=== PATIENT | male | born 1955 | race Caucasian/White ===

== ENCOUNTER 2022-04-01 15:54 | Inpatient (IN) | payer OTHER ==
[~2022-04-01] VITALS: Ht 175.3 cm; Wt 98.5 kg
[2022-04-01 16:19] LABS: BASOPHILS % (AUTO) 0.3 % (0.0-2.0); EOSINOPHILS % (AUTO) 0.1 % (1.0-6.0); HEMATOCRIT 43.7 % (41-53); HEMOGLOBIN 14.4 g/dL (13.5-17.5); LYMPHOCYTES # (AUTO) 0.6 K/uL (1.0-4.8); LYMPHOCYTES % (AUTO) 4.6 % (22.0-44.0); MEAN CORPUSCULAR HEMOGLOBIN 28.2 pg (26.0-34.0); MEAN CORPUSCULAR VOLUME 85 fL (80-100); MONOCYTES # (AUTO) 1.2 K/uL (0.1-1.0); MONOCYTES % (AUTO) 8.8 % (2.0-9.0); NEUTROPHILS # (AUTO) 11.2 K/uL (1.8-7.7); PLATELET COUNT (AUTO) 136 K/uL (150-450); RED BLOOD CELL COUNT(AUTO) 5.13 MIL/uL (4.50-5.90); RED CELL DISTRIBUTION WIDTH 15.5 % (11.5-14.5)
[2022-04-01 16:26] LABS: NEUTROPHILS % (AUTO) 86.2 % (40.0-70.0)
[2022-04-01 16:32] LABS: CALCIUM, TOTAL 8.6 mg/dL (8.8-10.5); CREATININE 1.23 mg/dL (0.60-1.30)
[2022-04-01 16:37] LABS: INR 1.3 (0.9-1.1); PROTHROMBIN TIME 13.3 SEC (9.4-11.6)
[2022-04-01 16:38] LABS: ALBUMIN 3.3 g/dL (3.4-5.0); BILIRUBIN,TOTAL 5.4 mg/dL (0.1-1.0); TOTAL PROTEIN, SERUM 7.5 g/dL (6.4-8.2)
[2022-04-01] MEDS ORDERED: SODIUM CHLORIDE 0.9% 1,000 ML IV ONE (16:45)
[2022-04-01] MEDS ORDERED: IOHEXOL 350 MG/ML 75 ML VIAL ONE (16:45)
[2022-04-01] MEDS ORDERED: SODIUM CHLORIDE 0.9% 100 ML ONE (16:45)
[2022-04-01] MEDS ORDERED: ONDANSETRON HCL 4 MG/2 ML VIAL IVP PRN (16:45)
[2022-04-01] MEDS ORDERED: DEXTROSE 50%-WATER 25 GM/50 ML SYRINGE IVP PRN (16:45)
[2022-04-01] MEDS ORDERED: BISACODYL 10 MG RECTAL RECTAL SUPPOSITORY PR PRN (16:45)
[2022-04-01 16:59] LABS: THYROID STIMULATING HORMONE 1.71 uIU/mL (0.36-3.74)
[2022-04-01] MEDS ORDERED: ALTEPLASE PER STROKE PROTOCOL CLINICAL ONE (17:00)
[2022-04-01] MEDS ORDERED: ALTEPLASE 9 MG in WATER FOR INJECTION,STERILE 9 ML IV ONE (17:02)
[2022-04-01] MEDS ORDERED: ALTEPLASE 81 MG in WATER FOR INJECTION,STERILE 81 ML IV ONE (17:02)
[2022-04-01 17:13] LABS: APPEARANCE,URINE CLEAR (CLEAR); GLUCOSE, URINE (UA) 70-100 mg/dL (NEGATIVE); KETONES,URINE NEGATIVE (NEGATIVE); LEUKOCYTE ESTERASE ,URINE NEGATIVE (NEGATIVE); NITRATE,URINE NEGATIVE (NEGATIVE); OCCULT BLOOD,URINE NEGATIVE (NEGATIVE); PROTEIN,URINE 100-200,SEE CONFIRM mg/dL (NEGATIVE); SPECIFIC GRAVITIY, URINE 1.032 (1.003-1.030)
[2022-04-01] MEDS ORDERED: AMIODARONE HCL 150 MG in DEXTROSE 5%-WATER 97 ML IV ONE (17:15)
[2022-04-01] MEDS ORDERED: AMIODARONE HCL 360 MG in DEXTROSE 5%-WATER 242.8 ML IV ONE (17:15)
[2022-04-01] MEDS ORDERED: SODIUM CHLORIDE 0.9% 3,050 ML IV ONE (17:15)
[2022-04-01 17:16] LABS: BILIRUBIN,URINE SMALL (NEGATIVE)
[2022-04-01 17:18] LABS: AMPHET/METH SCREEN,URINE NEGATIVE (NEGATIVE); BARBITURATE SCREEN, URINE NEGATIVE (NEGATIVE); BENZODIAZEPINES SCREEN,URINE NEGATIVE (NEGATIVE); CANNABINOID SCREEN,URINE NEGATIVE (NEGATIVE); COCAINE SCREEN,URINE NEGATIVE (NEGATIVE); METHADONE SCREEN, URINE NEGATIVE (NEGATIVE); OPIATE SCREEN,URINE NEGATIVE (NEGATIVE); PHENCYCLIDINE SCREEN,URINE NEGATIVE (NEGATIVE)
[2022-04-01 17:26] LABS: BACTERIA,URINE None Seen /HPF (None Seen); RBC,URINE 0-2 /HPF (0-2); SULFOSALICYLIC ACID,URINE 1+ (Negative); WBC,URINE 0-2 /HPF (0-5)
[2022-04-01] MEDS ORDERED: ACETAMINOPHEN 1000 MG/ISO-OSM 100 ML IV ONE (17:30)
[2022-04-01] MEDS: PANTOPRAZOLE SODIUM 40 MG/VIAL IVP SCH (17:35)
[2022-04-01] MEDS ORDERED: ASPIRIN 300 MG RECTAL SUPPOSITORY PR ONE (17:45)
[2022-04-01 21:00] VITALS: BP 142/97
[2022-04-01] MEDS: ETHYL ALCOHOL 62% ANTISEPTIC NASAL SANITIZER 0.6 ML AMPUL NASAL SCH (22:10)
[2022-04-01 22:16] LABS: GLUCOSE,POINT OF CARE 132 MG/DL (70-110)
[2022-04-01] MEDS ORDERED: AMIODARONE HCL 540 MG in DEXTROSE 5%-WATER 239.2 ML IV ONE (23:15)
[2022-04-02] VITALS: BP_SYST 153; BP_SYST 158; BP_DIAS 112; BP_DIAS 85
[2022-04-02] MEDS ORDERED: HEPARIN SODIUM,PORCINE 5,000 UNITS/ML VIAL SQ SCH
[2022-04-02 01:32] LABS: COVID AG,FIA SOURCE NASAL SWAB
[2022-04-02] MEDS: LABETALOL HCL 5 MG/ML 20 ML VIAL IVP PRN (01:50)
[2022-04-02 01:58] LABS: INFLUENZA TYPE A NEGATIVE FOR TYPE A (NEGATIVE); INFLUENZA TYPE B NEGATIVE FOR TYPE B (NEGATIVE)
[2022-04-02 04:00] VITALS: BP 171/100
[2022-04-02 06:16] LABS: CHOL/HDL RATIO 2.9 (4.2-7.3)
[2022-04-02] MEDS: INSULIN LISPRO 100 UNITS/ML SQ PRN ×2 (06:43→23:22)
[2022-04-02 06:51] LABS: GLUCOSE,POINT OF CARE 146 MG/DL (70-110)
[2022-04-02 08:00] VITALS: BP 155/100
[2022-04-02] MEDS: PANTOPRAZOLE SODIUM 40 MG/VIAL IVP SCH (09:00)
[2022-04-02] MEDS: ETHYL ALCOHOL 62% ANTISEPTIC NASAL SANITIZER 0.6 ML AMPUL NASAL SCH ×2 (09:32→20:49)
[2022-04-02] MEDS: ACETAMINOPHEN 325 MG TABLET PO PRN ×2 (10:24→16:28)
[2022-04-02] MEDS: METOPROLOL TARTRATE 25 MG TABLET PO SCH ×2 (11:52→20:49)
[2022-04-02] MEDS: LOSARTAN POTASSIUM 50 MG TABLET PO SCH (11:52)
[2022-04-02 12:00] VITALS: BP 159/95
[2022-04-02 16:00] VITALS: BP 168/89
[2022-04-02] MEDS ORDERED: AMIODARONE HCL 750 MG in DEXTROSE 5%-WATER 485 ML IV SCH (18:00)
[2022-04-02 18:31] LABS: GLUCOSE,POINT OF CARE 135 MG/DL (70-110)
[2022-04-02 18:31] LABS: GLUCOSE,POINT OF CARE 131 MG/DL (70-110)
[2022-04-02 20:00] VITALS: BP 142/103
[2022-04-02 23:46] LABS: GLUCOSE,POINT OF CARE 182 MG/DL (70-110)
[2022-04-03] VITALS: BP 151/107
[2022-04-03 04:15] VITALS: BP 163/94
[2022-04-03] MEDS: LABETALOL HCL 5 MG/ML 20 ML VIAL IVP PRN ×2 (04:22→11:23)
[2022-04-03 06:26] LABS: GLUCOMETER DEV NAME(LOC) 5N.1C; GLUCOSE,POINT OF CARE 115 MG/DL (70-110)
[2022-04-03 06:27] LABS: BASOPHILS % (AUTO) 0.3 % (0.0-2.0); HEMATOCRIT 40.9 % (41-53); HEMOGLOBIN 13.6 g/dL (13.5-17.5); LYMPHOCYTES # (AUTO) 0.7 K/uL (1.0-4.8); LYMPHOCYTES % (AUTO) 7.8 % (22.0-44.0); MEAN CORPUSCULAR HGB CONC 33.3 G/dL (31.0-37.0); MEAN CORPUSCULAR VOLUME 87 fL (80-100); MONOCYTES # (AUTO) 0.8 K/uL (0.1-1.0); MONOCYTES % (AUTO) 8.6 % (2.0-9.0); NEUTROPHILS # (AUTO) 7.6 K/uL (1.8-7.7); NEUTROPHILS % (AUTO) 82.3 % (40.0-70.0); PLATELET COUNT (AUTO) 124 K/uL (150-450); RED CELL DISTRIBUTION WIDTH 15.5 % (11.5-14.5)
[2022-04-03] MEDS: ACETAMINOPHEN 325 MG TABLET PO PRN (06:30)
[2022-04-03 06:42] LABS: ALANINE AMINOTRANSFERASE 51 U/L (12-78); ALBUMIN 2.6 g/dL (3.4-5.0); ALKALINE PHOSPHATASE 78 U/L (46-116); ANION GAP 11 mmol/L (8-16); ASPARTATE AMINOTRANSFERASE 34 U/L (15-37); BILIRUBIN,TOTAL 4.4 mg/dL (0.1-1.0); CALCIUM, TOTAL 8.1 mg/dL (8.8-10.5); CARBON DIOXIDE 21 mmol/L (22-29); CHLORIDE 101 mmol/L (98-107); CREATININE 1.18 mg/dL (0.60-1.30); GLUCOSE,RANDOM 140 mg/dL (70-110); POTASSIUM 3.8 mmol/L (3.5-5.1); SODIUM SERUM 133 mmol/L (136-145); TOTAL PROTEIN, SERUM 6.9 g/dL (6.4-8.2); UREA NITROGEN, BLOOD 15 mg/dL (7-18)
[2022-04-03 06:45] LABS: GLOMERULAR FILTR. RATE CALC > 60 mL/min (>60)
[2022-04-03 07:41] VITALS: BP 147/97
[2022-04-03] MEDS: LOSARTAN POTASSIUM 50 MG TABLET PO SCH (09:10)
[2022-04-03] MEDS: ETHYL ALCOHOL 62% ANTISEPTIC NASAL SANITIZER 0.6 ML AMPUL NASAL SCH ×2 (09:10→20:33)
[2022-04-03] MEDS: METOPROLOL TARTRATE 25 MG TABLET PO SCH (09:10)
[2022-04-03] MEDS: PANTOPRAZOLE SODIUM 40 MG/VIAL IVP SCH (09:10)
[2022-04-03 11:16] VITALS: BP 162/113
[2022-04-03] MEDS: INSULIN LISPRO 100 UNITS/ML SQ PRN (11:22)
[2022-04-03 15:30] VITALS: BP 124/86
[2022-04-03 19:48] VITALS: BP 161/108
[2022-04-03] MEDS: METOPROLOL TARTRATE 50 MG TABLET PO SCH (20:02)
[2022-04-03] MEDS: AMIODARONE HCL 200 MG TABLET PO SCH (20:03)
[2022-04-03 20:11] LABS: GLUCOMETER DEV NAME(LOC) 5N.1C; GLUCOSE,POINT OF CARE 149 MG/DL (70-110)
[2022-04-03 20:12] LABS: GLUCOMETER DEV NAME(LOC) 5N.1C; GLUCOSE,POINT OF CARE 108 MG/DL (70-110)
[2022-04-03 20:26] LABS: GLUCOMETER DEV NAME(LOC) 5S.2B; GLUCOSE,POINT OF CARE 147 MG/DL (70-110)
[2022-04-03] MEDS ORDERED: AMIODARONE HCL 200 MG TABLET PO SCH (21:00)
[2022-04-04 00:15] VITALS: BP 148/110
[2022-04-04] MEDS ORDERED: DIGOXIN 250 MCG/ML 2 ML AMP IVP ONE (00:45)
[2022-04-04 04:53] VITALS: BP 147/108
[2022-04-04 08:06] VITALS: BP 159/117
[2022-04-04] MEDS: ETHYL ALCOHOL 62% ANTISEPTIC NASAL SANITIZER 0.6 ML AMPUL NASAL SCH (08:49)
[2022-04-04] MEDS: PANTOPRAZOLE SODIUM 40 MG/VIAL IVP SCH (08:49)
[2022-04-04] MEDS: AMIODARONE HCL 200 MG TABLET PO SCH ×2 (08:50→15:19)
[2022-04-04] MEDS: METOPROLOL TARTRATE 50 MG TABLET PO SCH (08:51)
[2022-04-04] MEDS ORDERED: LOSARTAN POTASSIUM 50 MG TABLET PO SCH (09:00)
[2022-04-04] MEDS ORDERED: ASPIRIN 81 MG CHEWABLE TABLET PO SCH (09:00)
[2022-04-04 11:26] VITALS: BP 154/94
[2022-04-04 12:36] LABS: GLUCOMETER DEV NAME(LOC) 5N.1C; GLUCOSE,POINT OF CARE 119 MG/DL (70-110)
[2022-04-04 12:37] LABS: GLUCOMETER DEV NAME(LOC) 5S.2B; GLUCOSE,POINT OF CARE 118 MG/DL (70-110)
[2022-04-04] MEDS ORDERED: AmLODIPine BESYLATE 5 MG TABLET PO SCH (13:15)
[2022-04-04 15:20] VITALS: BP 147/108
[2022-04-04 15:30] LABS: COVID AG,FIA SOURCE NASOPHARYNGEAL
[2022-04-04] MEDS ORDERED: AMIO200T68 PO (17:33)
[2022-04-04] MEDS ORDERED: AMLO-257 PO (17:33)
[2022-04-04] MEDS ORDERED: ASPI81TA87 PO (17:33)
[2022-04-04] MEDS ORDERED: METO50 PO (17:34)
[2022-04-04] MEDS ORDERED: LOSA-382 PO (17:34)
== END 2022-04-04 18:40 | DRG 65 ==
LOC: EMS 15:54 → ICU 16:40 → 5S 04-03 03:50
PROVIDERS: ADMIT Internal Medicine; ATTEND Internal Medicine
DX: I63.9 Cerebral infarction, unspecified (principal); G81.94 Hemiplegia, unspecified affecting left nondominant side; I48.20 Chronic atrial fibrillation, unspecified; I10 Essential (primary) hypertension; E11.9 Type 2 diabetes mellitus without complications; R29.810 Facial weakness; R47.81 Slurred speech; Z20.822 Contact with and (suspected) exposure to COVID-19; Z86.73 Personal history of transient ischemic attack (TIA), and cerebral infarction without residual deficits; Z79.899 Other long term (current) drug therapy
CPT/HCPCS: 51702; 70496; 70498; 70551; 71045; 72125; 76700; 80053; 80061; 81001; 81002; 82140; 82948; 82962; 83605; 83880; 84145; 84443; 84484; 85025; 85610; 85730; 86850; 86900; 86901; 87040; 87081; 87804; 92610; 93005; 93306; 97112; 97116; 97163; 97167; 97530; 97535; 99291; C9113; G0378; G0480; J0131; J0282; J1160; J2997; J3490; J7030; J7050; J7060; Q9967; 36415-L1; 36415-TC; 70450; 70450-TC